=== PATIENT | male | born 1980 | race Caucasian/White ===

== ENCOUNTER 2018-06-13 20:31 | Emergency (ER) | payer OTHER ==
[~2018-06-13] VITALS: Ht 190.5 cm; Wt 136.1 kg
[~2018-06-13 20:31] MED LIST: AMOXICILLIN250 MG PO; CLEOCIN HCL150 MG PO; IBUPROFEN 600600 M1 PO; NOHOMEMEDICATIONS; NORCO 5-325 TA1 EACH PO; ULTRAM 50MG TAB50 MG PO
[2018-06-13] MEDS ORDERED: REVIA 50 MG TAB50 MG PO (20:42)
[2018-06-13] MEDS ORDERED: NAPROSYN500 MG PO (22:15)
[2018-06-13] MEDS ORDERED: ZOFRAN ODT4 MG PO (22:15)
[2018-06-13 22:51] VITALS: BP 155/83
== END 2018-06-13 22:52 | disposition home or self-care (01) ==
LOC: ER 20:31
DX: S06.890A Other specified intracranial injury without loss of consciousness, initial encounter (principal); M10.9 Gout, unspecified; W20.8XXA Other cause of strike by thrown, projected or falling object, initial encounter; Y93.89 Activity, other specified; Y92.89 Other specified places as the place of occurrence of the external cause; Y99.8 Other external cause status

== ENCOUNTER → 2020-04-09 | Outpatient (CLI) | payer OTHER ==
[~2020-04-09] MED LIST changes: +NAPROSYN500 MG PO; +REVIA 50 MG TAB50 MG PO; +ZOFRAN ODT4 MG PO
== END ==
LOC: RAD 14:25
PROVIDERS: ATTEND Family Medicine
DX: S89.82XA Other specified injuries of left lower leg, initial encounter (principal); X58.XXXA Exposure to other specified factors, initial encounter; Y93.89 Activity, other specified; Y92.89 Other specified places as the place of occurrence of the external cause; Y99.8 Other external cause status

== ENCOUNTER → 2020-04-19 | Outpatient (CLI) | payer OTHER | LOC: LAB 09:06 | PROVIDERS: ATTEND Anesthesiology | DX: Z01.812 Encounter for preprocedural laboratory examination (principal); Z20.822 Contact with and (suspected) exposure to COVID-19 ==

== ENCOUNTER 2021-01-09 12:53 | Emergency (ER) | payer OTHER ==
[~2021-01-09] VITALS: Ht 188 cm; Wt 147.4 kg
[2021-01-09 14:02] LABS: BE(vivo) 0.5 mmol/L (-2 to +3); HCO3 24.2 mmol/L (22.0-26.0); PCO2 36.2 mmHg (35.0-45.0); PO2 89.9 mmHg (80.0-100.0); pH 7.443 (7.360-7.450); sO2 97.2 % (92.0-98.0)
[2021-01-09] MEDS ORDERED: SEROQUEL300 MG PO (14:08)
[2021-01-09] MEDS ORDERED: GABAPENTIN800 M1 PO (14:09)
[2021-01-09 14:32] LABS: ABSOLUTE NEUTROPHILS 5.5 thou/uL (1.4-8.2); BASOPHILS 0.5 % (0.0-2.0); EOSINOPHILS 2.5 % (0.0-3.0); HEMATOCRIT 41.3 % (42.0-52.0); HEMOGLOBIN 14.2 gm/dL (14.0-18.0); LYMPHOCYTES 24.5 % (24.0-44.0); MCH 29.9 pg (26.0-34.0); MCHC 34.4 g/dL (28.0-37.0); MCV 87.1 fL (80.0-100.0); MONOCYTES 7.1 % (1.0-8.0); PLATELET COUNT 280 thou/uL (150-400); POLYS 65.4 % (36.0-66.0); RBC 4.74 mil/uL (4.50-6.00); RDW 13.8 % (10.5-14.5); WBC 8.4 thou/uL (4.0-11.0)
[2021-01-09 14:50] LABS: CALCIUM 8.8 mg/dL (8.5-10.1); CREATININE 1.2 mg/dL (0.7-1.3); POTASSIUM 3.6 mmol/L (3.5-5.1)
[2021-01-09 14:56] LABS: TOTAL BILIRUBIN 0.5 mg/dL (0.2-1.0); TOTAL PROTEIN 7.2 g/dL (6.4-8.2)
[2021-01-09] MEDS ORDERED: MEDROLDOSEPACK PO (15:22)
--- NOTE | 2021-01-09 15:37 | EKG ---
[address] [employer] [place] [address] ELECTROCARDIOGRAM REPORT Name: JOSE HERRING V Room #: [facility]#: [id number] Admission: 01/09/21 Attend Phys: Discharge: Date of : 76 Report #: [id number] [facility] ED Test Date: 2021-01-09 Test Time: 13:51:12 Pat Name: JOSE HERRING Department: Room: Gender: M [employer] Operator: [email or web address] : 1980 Requested By: Roddy Rainey Order Number: [id number] MD: Nate Juarez Measurements Intervals [place] Rate: 68 P: 11 CA: 190 QRS: 37 QRSD: 101 T: 31 QT: 383 QTc: 408 Interpretive Statements Sinus rhythm No previous ECG available for comparison Electronically Signed On 01-09-2021 15:37:23 CDT by Nate Juarez [email or web address] <ELECTRONICALLY SIGNED> By: Nate Juarez MD, [facility] 01/09/21 1537 1351 1351 Nate Juarez MD, FACC /EPI
[2021-01-09 16:13] VITALS: BP 112/82
== END 2021-01-09 16:14 | disposition home or self-care (01) ==
LOC: ER 12:53
PROVIDERS: Physician Assistant
DX: Z77.098 Contact with and (suspected) exposure to other hazardous, chiefly nonmedicinal, chemicals (principal); J98.11 Atelectasis; Z98.890 Other specified postprocedural states; Z79.891 Long term (current) use of opiate analgesic; Z79.899 Other long term (current) drug therapy